=== PATIENT | female | born 1995 | race Caucasian/White ===

== ENCOUNTER 2024-11-01 10:13 | Outpatient (OUT) | payer OTHER, SELFPAY ==
[2024-11-01 10:44] LABS: Basophils Absolute Auto 0.1 10^3/uL (0.0-0.1); Basophils Percent Auto 0.8 % (0.2-2.0); Eosinophils Absolute Auto 0.4 10^3/uL (0.0-0.7); Eosinophils Percent Auto 3.2 % (0.9-7.0); Hematocrit 37.3 % (36.0-48.0); Hemoglobin 12.8 g/dL (12.0-16.0); Immature Granulocytes Abs Auto 0.05 10^3/uL (0.00-0.03); Immature Granulocytes Pct Auto 0.5 % (0.0-0.5); Lymphocytes Absolute Auto 2.3 10^3/uL (1.2-3.8); Lymphocytes Percent Auto 21.3 % (20.5-60.0); Mean Corpuscular HGB Conc 34.3 g/dL (29.9-35.2); Mean Corpuscular Hemoglobin 29.6 pg (26.7-34.0); Mean Corpuscular Volume 86.1 fL (81.0-99.0); Mean Platelet Volume 10.4 fL (9.5-13.5); Monocytes Absolute Auto 0.6 10^3/uL (0.3-0.8); Monocytes Percent Auto 5.7 % (1.7-12.0); Neutrophils Absolute Auto 7.4 10^3/uL (1.4-6.5); Neutrophils Percent Auto 68.5 % (43.0-75.0); Platelet Count 338 10^3/uL (150-450); Red Blood Count 4.33 10^6/uL (4.20-5.40); Red Cell Distribution Width 11.6 % (11.0-15.0); White Blood Count 10.8 10^3/uL (4.0-11.0)
[2024-11-01 10:58] LABS: Amphetamine Screen Urine NEGATIVE (NEGATIVE); Barbiturates Screen Urine NEGATIVE (NEGATIVE); Benzodiazepines Screen Urine NEGATIVE (NEGATIVE); Buprenorphine Screen Urine NEGATIVE (NEGATIVE); Cannabinoid Screen Urine NEGATIVE (NEGATIVE); Cocaine Screen Urine NEGATIVE (NEGATIVE); Methadone Screen Urine NEGATIVE (NEGATIVE); Methamphetamines Screen Urine NEGATIVE (NEGATIVE); Opiate Screen Urine NEGATIVE (NEGATIVE); Oxycodone Screen Urine NEGATIVE (NEGATIVE); Phencyclidine Screen Urine NEGATIVE (NEGATIVE); Tricyclic Antidepressant Urine NEGATIVE (NEGATIVE)
[2024-11-01 11:36] LABS: Estimated Average Glucose 111 mg/dL; Glycohemoglobin A1C 5.5 % (4.5-6.2)
[2024-11-01 11:57] LABS: BOX Test Reference Lab UNITY; BOX Test Sent Out UNITY
[2024-11-02 08:10] LABS: HBsAg Screen Negative (Negative)
[2024-11-02 09:12] LABS: HCV Ab Non Reactive (Non Reactive); HIV Ab/p24 Ag Screen Non Reactive (Non Reactive)
[2024-11-02 13:07] LABS: Rapid Plasma Reagin, Quant Non Reactive titer (NonRea<1:1)
== END 2024-11-01 10:14 | disposition home or self-care (01) ==
LOC: LAB 10:19
PROVIDERS: PCP Family Medicine; Visit Provider Obstetrics & Gynecology
DX: Z34.01 Encounter for supervision of normal first pregnancy, first trimester (principal); Z36.0 Encounter for antenatal screening for chromosomal anomalies; N92.6 Irregular menstruation, unspecified
CPT/HCPCS: 36415; 80307; 83036; 85025; 86592; 86762; 86803; 86850; 86900; 86901; 87086; 87340; 87389

== ENCOUNTER 2024-12-16 13:48 | Outpatient (REF) | payer OTHER, SELFPAY ==
[2024-12-18 14:10] LABS: Age Gdln ACOG Testing Note (.); IGP, rfx Aptima HPV ASCU Note (.)
== END 2024-12-16 13:49 | disposition home or self-care (01) ==
LOC: LAB 13:48
PROVIDERS: PCP Family Medicine; Visit Provider Obstetrics & Gynecology
DX: Z01.419 Encounter for gynecological examination (general) (routine) without abnormal findings (principal)
CPT/HCPCS: 88175

== ENCOUNTER 2025-01-24 09:56 | Outpatient (OUT) | payer OTHER, SELFPAY ==
--- OUTSIDE RECORDS SUMMARY | 2025-01-14 15:30 | XMS_ITS | Encounter Summary ---
Author Organization [facility] Address [address] [place] [address] Care Team Providers Care Major Appliance Assembly Supervisor Name Role Phone Fer Boggs MD Primary Care Provider + [phone] Reason for Visit * Reason Comments Routine Visit Encounter Details Date Type Department Care Team (Late st Contact Info) Description 01/14/2025 3:30 PM EDT Routine [facility] [address] [phone] Anya Maldonado PA [address] [place] [phone] Second trimester ([facility]); 22 weeks gestation of ([facility]); Diabetes mellitus screening; Encounter for follow-up ultrasound of anatomy ([facility]) Social History Tobacco Use Types Packs/Day Years Used Date Smoking Tobacco: Never Assessed Estimated Date of Delivery Comme nts Yes 05/15/2025 Based on Ultraso und Sex and Gender Information Value Date Recorded Sex Assigned at Female 10/09/2024 1:37 PM EDT Legal Sex Female 1:10 PM EST Gender Identity Female 10/09/2024 1:37 PM EDT Sexual Orientation Not on file documented as of this encounter Last Filed Vital Signs Vital Sign Reading Time Taken Comments Blood Pressure 126/84 01/14/2025 3:50 PM EDT Pulse - - Temperature - - Respiratory Rate - - Oxygen Saturation - - Inhaled Oxygen Concentration - - Weight 86 kg (189 lb 8 oz) 01/14/2025 3:50 PM ED T Height - - Body Mass Index 31.53 12/16/2024 8:53 AM EDT documented in this encounter Progress Notes * MAGDA Staley - 01/14/2025 3:30 PM EDT Reason for Appointment: Patient ID: Diana Montenegro is a 29 y.o. female who presents for Routine Visit Patient presents today for Return OB appointment. MEDICATIONS Current Outpatient Medications Medication Instructions MV-Min-Fe Fum-FA-DHA ( 1 PO) Oral ALLERGIES Allergies Allergen Reactions Keflex [Cephalexin] PROBLEMS Active Ambulatory Problems Diagnosis Date Noted No Active Ambulatory Problems Resolved Ambulatory Problems Diagnosis Date Noted No Resolved Ambulatory Problems No Additional Past Medical History HISTORY PAST MEDICAL HISTORY SOCIAL HISTORY No past medical history on file. Social History Tobacco Use Smoking status: Not on file Smokeless tobacco: Not on file Substance Use Topics Alcohol use: Not on file Drug use: Not on file FAMILY HISTORY No family history on file. SURGICAL HISTORY No past surgical history on file. REVIEW OF SYSTEMS Review of Systems: Review of Systems Constitutional: Negative. HENT: Negative. Eyes: Negative. Respiratory: Negative. Cardiovascular: Negative. Gastrointestinal: Negative. Genitourinary: Negative. Musculoskeletal: Negative. Skin: Negative. Neurological: Negative. All other systems reviewed and are negative. Hematological: Negative. Endocrine: Negative. Allergic/Immunologic: Negative. OBJECTIVE Objective: Physical Exam Constitutional: Appearance: Normal appearance. She is normal weight. HENT: Head: Normocephalic. Cardiovascular: Rate and Rhythm: Normal rate. Pulses: Normal pulses. Pulmonary: Effort: Pulmonary effort is normal. Breath sounds: Normal breath sounds. Abdominal: Palpations: Abdomen is soft. Musculoskeletal: General: Normal range of motion. Neurological: General: No focal deficit present. Mental Status: She is alert and oriented to person, place, and time. Psychiatric: Mood and Affect: Mood normal. Behavior: Behavior normal. Thought Content: Thought content normal. Judgment: Judgment normal. Vitals and nursing note reviewed. Vitals: Estimated body mass index is 31.53 kg/m?? as calculated from the following: Height as of 12/16/24: 5' 5 . Weight as of this encounter: 189 lb 8 oz. BP: 126/84 Patient's last menstrual period was 08/03/2024. ASSESSMENT & PLAN ICD-10-CM 1. Second trimester ([facility]) Z34.92 POCT urinalysis dipstick manually resulted 2. 22 weeks gestation of ([facility]) Z3A.22 3. Diabetes mellitus screening Z13.1 CBC Glucose tolerance, 1 hour CBC Glucose tolerance, 1 hour Return OB: Patient presents today for a routine obstetrics appointment. Patient is currently 22w5d . Patient states she is doing well but has complaints of being tired due to current . Patient has verbalizes frequent movement. Orders Placed This Encounter Procedures CBC Glucose tolerance, 1 hour POCT urinalysis dipstick manually resulted Follow Up: Patient is to return to office in 4 week for routine OB appointment. Documented by MAGDA Staley on behalf of: MAGDA Staley documented in this encounter Plan of Treatment Upcoming Encounters Date Type Department Care Team (Late st Contact Info) Description 02/10/2025 9:30 AM EDT Ancillary Procedure [facility] [address] [place] [phone] 02/10/2025 10:10 AM EDT Routine [facility] [address] [place] [address] Scar Porter, DO [address] [place], [place] [address] [address] Scheduled Orders Name Type Priority Associated Diagnoses Orde r Schedule CBC Lab Routine Diabetes mellitus screening Expected: 01/14/2025 (Approximate), Expires: 01/14/2026 Glucose tolerance, 1 hour Lab Routine Diabetes mellitus screening Expected: 01/14/2025 (Approximate), Expires: 01/14/2026 US OB limited 1+ fetuses Imaging Routine Encounter for follow-up ultrasound of anatomy ([facility]) Expected: 01/14/2025, Expires: 04/16/2025 documented as of this encounter Procedures Procedure Name Priority Date/Time Associated Diagnosis Comments POCT URINALYSIS DIPSTICK Routine 01/14/2025 3:56 PM EDT Second trimester ([facility]) documented in this encounter Results * (ABNORMAL) POCT urinalysis dipstick manually resulted (01/14/2025 3:56 PM EDT) Color, UA Yellow Clarity, UA Clear Glucose, UA Negative Negative - 2000(110) ++++ mg/dL Bilirubin, UA Negative Negative - 4(70) +++ mg/dL Ketones, UA Positive Negative - 160(16) ++++ mg/dL Comment:Trace Spec Grav, UA 1.025 1 - 1.03 Blood, UA Negative Negative - 50 Jaskaran/mcL pH, UA 6.5 5 - 9 Protein, UA Negative Negative - 2000(20) ++++ mg/dL Urobilinogen, UA 1.0 0.2 - 12 mg/dL Leukocytes, UA Trace Negative - 500+++ Ang/mcL Nitrite, UA Negative Negative - Positive Urine 01/14/2025 3:56 PM EDT Anya MAN POINT OF CARE TEST ENTER/EDIT OR DERABLES Final Result documented in this encounter Visit Diagnoses Diagnosis Second trimester ([facility]) state, incidental 22 weeks gestation of ([facility]) Diabetes mellitus screening Screening for diabetes mellitus Encounter for follow-up ultrasound of anatomy ([facility]) documented in this encounter Care Teams Major Appliance Assembly Supervisor Relationship Specialty Start Date End Date Fer Boggs MD [address] [place] [address] PCP - General Family Medicine 10/09/24 documented as of this encounter
--- OUTSIDE RECORDS SUMMARY | 2025-01-24 09:59 | XMS_ITS ---
Author Organization [facility] (ClinicalSummary Clone) Address Unknown Care Team Providers Care Agricultural Consultant Name Role Phone Unavailable Primary Care Physician Unavailab le Results * [UNITY] ANEUPLOIDY NIPT Performed by: [employer] Component Value Range Date Fraction 4.3% 11/08/2024 05 :56 am UT Rh(D) NIPT RhD DETECTED 11/08/2024 05:5 6 am UT Sex Chromosome Aneuploidy NOT DETECTED 05:56 am UTC Monosomy X LOW RISK <1 in 10,000 2024 05:56 am UTC Trisomy 13 LOW RISK <1 in 10,000 2024 05:56 am UTC Trisomy 18 LOW RISK <1 in 10,000 2024 05:56 am UTC Trisomy 21 LOW RISK <1 in 10,000 2024 05:56 am UTC Sex MALE 11/08/2024 05:5 6 am UTC Gestation BYERS 11/09/19 05:56 am UT For detailed report, see PDF See PDF 11/08/2024 05:56 am UTC 11/08/2024 05:5 6 am UT Social History Observation Value Start Date End Date
--- OUTSIDE RECORDS SUMMARY | 2025-01-24 09:59 | XMS_ITS | Encounter Summary ---
Author Organization [facility] Address [address] [place] [address] Care Team Providers Care Manager Oracle Name Role Phone Fer Boggs MD Primary Care Provider [phone] Encounter Details Date Type Department Care Team (Late st Contact Info) Description 01/14/[address] [facility] [address] [place] [address] [place] [phone] Anya Maldonado PA [address] [place] [address] [address] [place], [id number] Social History Tobacco Use Types Packs/Day Years Used Date Smoking Tobacco: Never Assessed Estimated Date of Delivery Comme nts Yes 05/15/2025 Based on Ultraso und Sex and Gender Information Value Date Recorded Sex Assigned at Female 10/09/2024 1:37 PM EDT Legal Sex Female 1:10 PM EST Gender Identity Female 10/09/2024 1:37 PM EDT Sexual Orientation Not on file documented as of this encounter Plan of Treatment Upcoming Encounters Date Type Department Care Team (Late st Contact Info) Description 02/10/2025 9:30 AM EDT Ancillary Procedure [facility] [address] [place], [place] [address] [phone] 02/10/2025 10:10 AM EDT [facility] [address] [place] [address] [place] [phone] Scar Porter DO [facility] Irene [place], [id number] documented as of this encounter Visit Diagnoses Not on filedocumented in this encounter Care Teams Manager Oracle Relationship Specialty Start Date End Date Fer Boggs MD [address] [address] PCP - General Family Medicine 10/09/24 documented as of this encounter
--- OUTSIDE RECORDS SUMMARY | 2025-01-24 09:59 | XMS_ITS ---
Author Organization [facility] Source Produ ction (ClinicalSummary Clone) Address Unknown Care Team Providers Care Community Engagement Specialist Name Role Phone Unavailable Primary Care Physician Unavailab le Results * [UNITY] CARRIER SCREEN Performed by: [employer] Component Value Range Date Sickle Cell Disease/Beta-Thalassemia/Hemo globinopathies carrier screen NEGATIVE 11/11/2024 08:54 pm UTC Alpha-Thalassemia carrier screen NEGATIVE 11/11/2024 08:54 pm UTC Cystic Fibrosis carrier screen NEGATIVE 11/11/2024 08:54 pm UTC Spinal Muscular Atrophy carrier screen NEGATIVE 3 SMN1 copies, SNP not present 11/11/2024 08:54 pm UT For detailed report, see PDF See PDF 11/11/2024 08:54 pm UTC 11/11/2024 08:5 4 pm UT Social History Observation Value Start Date End Date
--- OUTSIDE RECORDS SUMMARY | 2025-01-24 09:59 | XMS_ITS | Clinical Summary ---
Author Organization [facility] Address [address] [place] [address] Care Team Providers Care Morning Babysitter Name Role Phone Fer Boggs MD Primary Care Provider [phone] Allergies Active Allergy Reactions Criticality Noted Date Comments Cephalexin 10/09/2024 Medications MV-Min-Fe Fum-FA-DHA ( 1 PO) Take by mouth Active Encounters Date Type Department Care Team Description 01/14/2025 3:30 PM EDT Routine [facility] [address] [place] [address] Anya Maldonado PA Second trimester ([facility]); 22 weeks gestation of ([facility]); Diabetes mellitus screening; Encounter for follow-up ultrasound of anatomy ([facility]) 01/14/2025 Bamboo flowsheet [facility] [address] [place] [address] Anya Maldonado PA 01/06/2025 2:30 PM EDT Ancillary Procedure [facility] [address] [place] [address] Screening, , for anatomic survey ([facility]) 12/30/2024 Orders Only [facility] [address] [place] [address] Tania Bertrand LPN 12/16/2024 8:40 AM EDT Routine [facility] [address] [place] [address] Scar Porter DO Second trimester ([facility]); 18 weeks gestation of ([facility]); Well woman exam with routine gynecological exam; Exposure to STD; Need for maternal serum alpha-protein (MSAFP) screening ([facility]); Screening, , for anatomic survey ([facility]) 12/16/2024 Clinisync Result Encounter [facility] External Department Unsolicited Scar Porter, 12/16/2024 External Result Encounter [facility] External Department Unsolicited Scar Porter, 12/16/2024 Bamboo flowsheet [facility] [address] [place] [address] Scar Porter DO 12/16/2024 Travel 11/17/2024 8:50 AM EDT Routine [facility] [address] [place] [address] Scar Porter DO Second trimester ([facility]); 14 weeks gestation of ([facility]) 11/17/2024 Bamboo flowsheet [facility] [address] [place] [address] Scar Porter DO 11/17/2024 Travel 11/01/2024 Clinisync Result Encounter [facility] External Department Unsolicited Scar Porter DO from Last 3 Months Social History Tobacco Use Types Packs/Day Years Used Date Smoking Tobacco: Never Assessed Estimated Date of Delivery Comme nts Yes 05/15/2025 Based on Ultraso und Sex and Gender Information Value Date Recorded Sex Assigned at Female 10/09/2024 1:37 PM EDT Legal Sex Female 1:10 PM EST Gender Identity Female 10/09/2024 1:37 PM EDT Sexual Orientation Not on file Last Filed Vital Signs Vital Sign Reading Time Taken Comments Blood Pressure 126/84 01/14/2025 3:50 PM EDT Pulse - - Temperature - - Respiratory Rate - - Oxygen Saturation - - Inhaled Oxygen Concentration - - Weight 86 kg (189 lb 8 oz) 01/14/2025 3:50 PM ED T Height 165.1 cm (5' 5 ) 12/16/2024 8:53 AM EDT Body Mass Index 31.53 12/16/2024 8:53 AM EDT Plan of Treatment Upcoming Encounters Date Type Department Care Team (Late st Contact Info) Description 02/10/2025 9:30 AM EDT Ancillary Procedure [facility] [address] [facility] [place] [phone] 02/10/2025 10:10 AM EDT Routine [facility] [address] [facility] [address] Scar Porter, DO [address] [place] [address] Procedures Procedure Name Priority Date/Time Associated Diagnosis Comments POCT URINALYSIS DIPSTICK Routine 01/14/2025 3:56 PM EDT Second trimester ([facility]) US OB 14+ WEEKS ANATOMY SCAN Routine 01/06/2025 3:39 PM EDT Screening, , for anatomic survey ([facility]) RECURRENT VAGINITIS (HTRX) Routine 12/16/2024 9:24 AM EDT IGP,APTIMA HPV,AGE GDLN Routine 12/16/2024 8:38 AM EDT PAP SMEAR Routine 12/16/2024 12:00 AM EDT POCT URINALYSIS DIPSTICK Routine 11/17/2024 12:04 PM EDT Second trimester ([facility]) HCV ANTIBODY RFX TO QUANT PCR Routine 11/01/2024 10:35 AM EDT ALL RUBELLA IGG AB Routine 11/01/2024 10 :35 AM EDT HBSAG SCREEN Routine 11/01/2024 10:35 AM EDT RAPID PLASMA REAGIN, QUANT Routine 11/01/2024 10:35 AM EDT HIV AB/P24 AG WITH REFLEX Routine 11/01/2024 10:35 AM EDT ALL TYPE AND SCREEN Routine 11/01/2024 1 0:35 AM EDT MLR HEMOGLOBIN A1C Routine 11/01/2024 10 :35 AM EDT ALL CBC WITH AUTO DIFF Routine 11/01/2024 10:35 AM EDT BOX TEST Routine 11/01/2024 10:28 AM EDT [facility] DRUG SCREEN RAPID (URINE) Routine 11/01/2024 10:25 AM EDT from Last 3 Months Results * (ABNORMAL) POCT urinalysis dipstick manually resulted (01/14/2025 3:56 PM EDT) Only the most recent of2 resultswithin the time period is included. Color, UA Yellow Clarity, UA Clear Glucose, [...] CARE TEST ENTER/EDIT OR DERABLES Final Result * US OB 14+ weeks anatomy scan (01/06/2025 3:39 PM EDT) Anatomical Region Laterality Modality Body Ultrasound 01/08/2025 9:47 AM EDT Narrative 01/08/2025 9:47 AM EDT EXAM: US OB 14+ WEEKS ANATOMY SCAN HISTORY: anatomy. COMPARISON: Ob ultrasound 10/09/2024. TECHNIQUE: Two-dimensional transabdominal grayscale ultrasound imaging of the pelvis was performed. FINDINGS: Gestation: Single Presentation: Variable Cardiac Activity: 145 beats per minute Placental Location: Posterior with no sonographic abnormalities identified. Distance from Placental Tip to Cervix: 2.7 cm Cervical Length: 4.9 cm Amniotic Fluid: Appears adequate MEASUREMENTS: BPD: 5.0 cm EGA: 21 weeks 2 days HC: 18.9 cm EGA: 21 weeks 2 days AC: 16.7 cm EGA: 21 weeks 5 days FL: 3.5 cm EGA: 21 weeks 0 days HC/AC Ratio: 1.14 The gestational age by today's ultrasound is 21 weeks 2 days (+/- 10 days gestation). Estimated Weight: 418 grams, +/- 63 grams ( 0 lb 15 oz). Weight Percentile for gestational age: 33 % ANATOMY C-Spine: Unremarkable T-Spine: Unremarkable L-Spine: Unremarkable Sacrum: Unremarkable Four Chamber Heart: Unremarkable LVOT: Limited RVOT: Limited Stomach: Unremarkable Kidneys: Unremarkable Bladder: Unremarkable Diaphragm: Unremarkable Cord insertion: Unremarkable Cord vessels: Three Lateral Ventricles: Unremarkable Cerebellum: Unremarkable Cisterna Magna: Unremarkable Posterior Fossa: Unremarkable Right Femur: Unremarkable Left Femur: Unremarkable Right Tib/Fib: Unremarkable Left Tib/Fib: Unremarkable Right Rad/Ulnar: Unremarkable Left Rad/Ulnar: Unremarkable Right Humerus: Unremarkable Left Humerus: Unremarkable Nose/Lips: Unremarkable Profile: Unremarkable Orbits: Unremarkable IMPRESSION: 1. Single, live intrauterine gestation 21 weeks, 4 days by LMP. Today's ultrasound measurements correlate with a gestational age of 21 weeks 2 days. Estimated weight is 418 grams, +/- 63 grams ( 0 lb 15 oz) which correlates to 33 %. IVET by today's ultrasound is 05/17/2025. 2. Unremarkable anatomy with limited visualization of the outflow tracts. A short-term follow-up ultrasound is recommended. Interpreted by: Electronically signed by SUMAN PATHAK II, MD, PHD at 08-Jan-2025 09:46:24 AM [facility] Procedure Note Suman Pathak MD - 01/08/2025 EXAM: US OB 14+ WEEKS ANATOMY SCAN HISTORY: anatomy. COMPARISON: Ob ultrasound 10/09/2024. TECHNIQUE: Two-dimensional transabdominal grayscale ultrasound imaging ofthe pelvis was performed. FINDINGS: Gestation: Single Presentation: Variable Cardiac Activity: 145 beats per minute Placental Location: Posterior with no sonographic abnormalitiesidentified. Distance from Placental Tip to Cervix: 2.7 cm Cervical Length: 4.9 cm Amniotic Fluid: Appears adequate MEASUREMENTS: BPD: 5.0 cm EGA: 21 weeks 2 days HC: 18.9 cm EGA: 21 weeks 2 days AC: 16.7 cm EGA: 21 weeks 5 days FL: 3.5 cm EGA: 21 weeks 0 days HC/AC Ratio: 1.14 The gestational age by today's ultrasound is 21 weeks 2 days (+/- 10 daysgestation). Estimated Weight: 418 grams, +/- 63 grams ( 0 lb 15 oz). Weight Percentile for gestational age: 33 % ANATOMY C-Spine: Unremarkable T-Spine: Unremarkable L-Spine: Unremarkable Sacrum: Unremarkable Four Chamber Heart: Unremarkable LVOT: Limited RVOT: Limited Stomach: Unremarkable Kidneys: Unremarkable Bladder: Unremarkable Diaphragm: Unremarkable Cord insertion: Unremarkable Cord vessels: Three Lateral Ventricles: Unremarkable Cerebellum: Unremarkable Cisterna Magna: Unremarkable Posterior Fossa: Unremarkable Right Femur: Unremarkable Left Femur: Unremarkable Right Tib/Fib: Unremarkable Left Tib/Fib: Unremarkable Right Rad/Ulnar: Unremarkable Left Rad/Ulnar: Unremarkable Right Humerus: Unremarkable Left Humerus: Unremarkable Nose/Lips: Unremarkable Profile: Unremarkable Orbits: Unremarkable IMPRESSION: 1. Single, live intrauterine gestation 21 weeks, 4 days by LMP. Today'sultrasound measurements correlate with a gestational age of 21 weeks 2days. Estimated weight is 418 grams, +/- 63 grams ( 0 lb 15 oz)which correlates to 33 %. IVET by today's ultrasound is 05/17/2025. 2. Unremarkable anatomy with limited visualization of the outflowtracts. A short-term follow-up ultrasound is recommended. Interpreted by: Electronically signed by SUMAN PATHAK II, MD, PHD [id number] 09:46:24 AM [facility] us Scar Porter DO IMG OB US PROCEDURES Final Resul t * RECURRENT VAGINITIS (HTRX) (12/16/2024 9:24 AM EDT) [facility] ATOPOBIUM VAGINAE 0.000 19.961 - 24.689 ppm 12/17/2024 7:05 AM EDT [facility] ATOPOBIUM VAGINAE Not Detected 19.961 - 24.689 ppm 12/17/2024 7:05 AM EDT [facility] BVAB 2,3 (BACTERIAL VAGINOSIS ASSOCIATED BACTERIA 2, 3); MOBILUNCUS SPP 0.000 19.961 - 24.689 ppm 12/17/2024 7:05 AM EDT [facility] BVAB 2,3 (BACTERIAL VAGINOSIS ASSOCIATED BACTERIA 2, 3); MOBILUNCUS SPP Not Detected 19.961 - 24.689 ppm 12/17/2024 7:05 AM EDT [facility] DIRK ALBICANS, PARAPSILOSIS, TROPICALIS 0.000 19.961 - 30.770 ppm 12/17/2024 7:05 AM EDT [facility] DIRK ALBICANS, PARAPSILOSIS, TROPICALIS Not Detected 19.961 - 30.770 ppm 12/17/2024 7:05 AM EDT [facility] DIRK GLABRATA 0.000 23.000 - 32.138 ppm 12/17/2024 7:05 AM EDT [facility] DIRK GLABRATA Not Detected 23.000 - 32.138 ppm 12/17/2024 7:05 AM EDT [facility] DIRK KRUSEI 0.000 23.000 - 32.271 ppm 12/17/2024 7:05 AM EDT [facility] DIRK KRUSEI Not Detected 23.000 - 32.271 ppm 12/17/2024 7:05 AM EDT [facility] CHLAMYDIA TRACHOMATIS 0.000 23.000 - 31.467 ppm 12/17/2024 7:05 AM EDT [facility] CHLAMYDIA TRACHOMATIS Not Detected 23.000 - 31.467 ppm 12/17/2024 7:05 AM EDT [facility] GARDNERELLA VAGINALIS 0.000 19.961 - 24.689 ppm 12/17/2024 7:05 AM EDT [facility] [place] GARDNERELLA VAGINALIS Not Detected 19.961 - 24.689 ppm 12/17/2024 7:05 AM EDT [facility] MEGASPHAERA (TYPES 1, 2) 0.000 19.961 - 24.689 ppm 12/17/2024 7:05 AM EDT [facility] MEGASPHAERA (TYPES 1, 2) Not Detected 19.961 - 24.689 ppm 12/17/2024 7:05 AM EDT [facility] NEISSERIA GONORRHOEAE 0.000 23.000 - 32.117 ppm 12/17/2024 7:05 AM EDT [facility] NEISSERIA GONORRHOEAE Not Detected 23.000 - 32.117 ppm 12/17/2024 7:05 AM EDT [facility] TRICHOMONAS VAGINALIS 0.000 23.000 - 32.119 ppm 12/17/2024 7:05 AM EDT [facility] TRICHOMONAS VAGINALIS Not Detected 23.000 - 32.119 ppm 12/17/2024 7:05 AM EDT [facility] MYCOPLASMA GENITALIUM 0.000 19.961 - 24.689 ppm 12/17/2024 7:05 AM EDT [facility] MYCOPLASMA GENITALIUM Not Detected 19.961 - 24.689 ppm 12/17/2024 7:05 AM EDT [facility] Tissue 12/16/2024 9:24 AM EDT 12/17/2024 2:51 AM EDT us Scar Porter DO LAB BLOOD ORDERABLES Final Resul t [facility] [address] [place] [address] * IGP,APTIMA HPV,AGE GDLN (12/16/2024 8:38 AM EDT) AGE GDLN ACOG TESTING Note . [facility] Comment: TESTS RESULT FLAG UNITS REF RANGE LAB Clinician Provided Cytology Information Source.............Endocervix Other.............. No. of containers..01 ThinPrep Vial Age Algo ACOG Myesha... FLAG LEGEND: L-Low Normal,H-High Normal,LL-Alert Low,HH-Alert High <-Panic Low,>-Panic High,A-Abnormal,AA-Critical Abnormal Performed at: 01 =[facility] [address] [place] [address] Karlee Rolon MD, IGP, RFX APTIMA HPV ASCU Note . [facility] Comment: TESTS RESULT FLAG UNITS REF RANGE LAB DIAGNOSIS: 02 NEGATIVE FOR INTRAEPITHELIAL LESION OR MALIGNANCY. Specimen adequacy: 02 Satisfactory for evaluation. No endocervical component is identified. An endocervical component is not commonly seen in the patient. Performed by: 02 Jonna Morrison, Roller Repairer (ASCP) . 02 Note: Note 02 The Pap smear is a screening test designed to aid in the detection of premalignant and malignant conditions of the uterine cervix. It is not a diagnostic procedure and should not be used as the sole means of detecting cervical cancer. Both false-positive and false-negative reports do occur. Test Methodology: Note 02 This liquid based ThinPrep(R) pap test was screened with the use of an image guided system. . 02 The HPV DNA reflex criteria were not met with this specimen result therefore, no HPV testing was performed. FLAG LEGEND: L-Low Normal,H-High Normal,LL-Alert Low,HH-Alert High <-Panic Low,>-Panic High,A-Abnormal,AA-Critical Abnormal Performed at: [address] [address] Karlee Rolon MD, Performed at: =G - [facility] [address] [id number] Live In Housekeeper Nanny: Karlee Rolon MD, Phone: [phone] Performed at: [facility] [address] [id number] Live In Housekeeper Nanny: Karlee Rolon MD, Phone: [phone] 12/16/2024 8:38 AM EDT 12/16/2024 1:53 PM EDT Narrative [facility] - 12/18/2024 2:10 PM EDT SPATULA-ALONE ENDOCERVIX us Scar Porter DO LAB BLOOD ORDERABLES Final Resul t [facility] * Pap Smear (12/16/2024 12:00 AM EDT) Swab Cervical swab / Unknown Scar German DO LAB CYTOLOGY ORDERABLES Final Re sult Performing Organization Address City/[facility]/ZIP Co de Phone Number EXTERNAL LAB * HBSAG SCREEN (11/01/2024 10:35 AM EDT) HBSAG SCREEN Negative Negative [facility] Comment: Performed at: [address] [id number] Live In Housekeeper Nanny: Morales Cameron PhD, Phone: [phone] 11/01/2024 10:3 5 AM EDT 11/01/2024 10:39 AM EDT Narrative [facility] - 11/02/2024 1:07 PM EDT Scar German DO LAB BLOOD ORDERABLES Final Resul t Performing Organization Address City/[facility] Co de Phone Number [facility] * RAPID PLASMA REAGIN, QUANT (11/01/2024 10:35 AM EDT) Pathologist [facility] RAPID PLASMA REAGIN, QUANT Non Reactive NonRea<1: 1 titer [facility] Comment: Please Note: This test does not meet current guidelines for screening and diagnosis of syphilis. This test is intended for following treatment response in patients being treated for syphilis infection. To screen for syphilis infection, a reflex cascade that includes both RPR and a treponema-specific assay should be utilized, such as Treponema pallidum (Syphilis) Screening [place] (559965) or Rapid Plasma Reagin (RPR) Test With Reflex to Quantitative RPR and Confirmatory Treponema pallidum Antibodies (698812). Performed at: [address] [id number] Live In Housekeeper Nanny: Morales Cameron PhD, Phone: [phone] 11/01/2024 10:3 5 AM EDT 11/01/2024 10:39 AM EDT Narrative [facility] - 11/02/2024 1:07 PM EDT us Scar German DO LAB BLOOD ORDERABLES Final Resul t Performing Organization Address [facility] Co de Phone Number [facility] * HIV AB/P24 AG WITH REFLEX (11/01/2024 10:35 AM EDT) [facility] HIV AB/P24 AG SCREEN Non Reactive Non Reactive [facility] Comment: HIV-1/HIV-2 antibodies and HIV-1 p24 antigen were NOT detected. There is no laboratory evidence of HIV infection. HIV Negative Performed at: [address] [id number] Live In Housekeeper Nanny: Morales Cameron PhD, Phone: [phone] 11/01/2024 10:3 5 AM EDT 11/01/2024 10:39 AM EDT [facility] 11/02/2024 9:12 AM EDT us Scar German DO LAB BLOOD ORDERABLES Final Resul t Performing Organization Address [facility] de Phone Number [facility] * HCV ANTIBODY RFX TO QUANT PCR (11/01/2024 10:35 AM EDT) [facility] HCV AB Non Reactive Non Reactive [facility] INTERPRETATION: Comment . [facility] Comment: Not infected with HCV unless early or acute infection is suspected (which may be delayed in an immunocompromised individual), or other evidence exists to indicate HCV infection. Performed at: [address] [id number] Live In Housekeeper Nanny: Morales Cameron PhD, Phone: [phone] 11/01/2024 10:3 5 AM EDT 11/01/2024 10:39 AM EDT Narrative [facility] - 11/02/2024 2:07 PM EDT us Scar German DO LAB BLOOD ORDERABLES Final Resul t Performing Organization Address [facility] Co de Phone Number [facility] * MLR HEMOGLOBIN A1C (11/01/2024 10:35 AM EDT) [facility] GLYCOHEMOGLOBIN A1C 5.5 4.5 - 6.2 % [facility] Comment: ADA RECOMMENDED LIMIT 4.0 - 6.0 ADA THERAPEUTIC TARGET < 7.0 ACTION SUGGESTED > 7.0 ESTIMATED AVERAGE GLUCOSE 111 mg/dL TB 11/01/2024 10:3 5 AM EDT 11/01/2024 10:39 AM EDT Narrative [facility] - 11/01/2024 11:36 AM EDT us Scar German DO [facility] Final Result Performing Organization Address City/[facility]/ZIP Co de Phone Number [facility] * ALL TYPE AND SCREEN (11/01/2024 10:35 AM EDT) [facility] BLOOD TYPE O Positive [facility] ANTIBODY SCREEN NEGATIVE TB 11/01/2024 10:3 5 AM EDT 11/01/2024 10:39 AM EDT Narrative [facility] - 11/01/2024 12:08 PM EDT [facility] , Scar German DO CLINISYNC Final Result Performing Organization Address [facility] de Phone Number [facility] * ALL RUBELLA IGG AB (11/01/2024 10:35 AM EDT) [facility] RUBELLA ANTIBODIES, IGG 10.90 Immune >0.99 index [facility] Comment: Non-immune <0.90 Equivocal 0.90 - 0.99 Immune >0.99 Performed at: [address] [id number] Live In Housekeeper Nanny: Morales Cameron PhD, Phone: [phone] 11/01/2024 10:3 5 AM EDT 11/01/2024 10:39 AM EDT Narrative [facility] - 11/02/2024 2:07 PM EDT us Scar German DO CLIN[facility] Final Result Performing Organization Address City/[facility]/ZIP Co de Phone Number [facility] * (ABNORMAL) ALL CBC WITH AUTO DIFF (11/01/2024 10:35 AM EDT) [facility] WBC 10.8 4.0 - 11.0 10 3/uL [facility] TBH RBC 4.33 4.20 - 5.40 10 6/uL [facility] TBH HGB 12.8 12.0 - 16.0 g/dL [facility] TBH HCT 37.3 36.0 - 48.0 % [facility]H MCV 86.1 81.0 - 99.0 fL [facility] TBH MCH 29.6 26.7 - 34.0 pg TBH TBH MCHC 34.3 29.9 - 35.2 g/dL [facility] TBH RDW 11.6 11.0 - 15.0 % [facility] TBH PLT 338 150 - 450 10 3/uL [facility] TBH MPV 10.4 9.5 - 13.5 fL [facility] NEUTROPHILS PERCENT AUTO 68.5 43.0 - 75.0 % [facility] LYMPHOCYTES PERCENT AUTO 21.3 20.5 - 60.0 % [facility] MONOCYTES PERCENT AUTO 5.7 1.7 - 12.0 % [facility]H EO % 3.2 0.9 - 7.0 % [facility] BASOPHILS PERCENT AUTO 0.8 0.2 - 2.0 % [facility] IMMATURE GRANULOCYTES PCT AUTO 0.5 0.0 - 0.5 % [facility] NEUTROPHILS ABSOLUTE AUTO 7.4(H) 1.4 - 6.5 10 3/uL [facility] LYMPHOCYTES ABSOLUTE AUTO 2.3 1.2 - 3.8 10 3/uL [facility] MONOCYTES ABSOLUTE AUTO 0.6 0.3 - 0.8 10 3/uL [facility] TBH EO # 0.4 0.0 - 0.7 10 3/uL [facility] BASOPHILS ABSOLUTE AUTO 0.1 0.0 - 0.1 10 3/uL [facility] IMMATURE GRANULOCYTES ABS AUTO 0.05(H) 0.00 - 0.03 10 3/uL [facility] 11/01/2024 10:3 5 AM EDT 11/01/2024 10:39 AM EDT Narrative [facility] - 11/01/2024 10:48 AM EDT Scar German DO CLINISYNC Final Result [facility] * BOX TEST (11/01/2024 10:28 AM EDT) BOX TEST SENT OUT [facility] BOX1 [facility] BOX[facility] 11/01/24 [facility] 11/01/2024 10:2 8 AM EDT 11/01/2024 11:00 AM EDT Narrative [facility] - 11/01/2024 11:57 AM EDT [place] us Scar German DO LAB BLOOD ORDERABLES Final Resul t [facility] * [facility] DRUG SCREEN RAPID (URINE) (11/01/2024 10:25 AM EDT) CANNABINOID SCREEN URINE NEGATIVE NEGATIVE [facility] PHENCYCLIDINE SCREEN URINE NEGATIVE NEGATIVE [facility] COCAINE SCREEN URINE NEGATIVE NEGATIVE [facility] METHAMPHETAMINES SCREEN URINE NEGATIVE NEGATIVE TBH OPIATE SCREEN URINE NEGATIVE NEGATIVE TBH AMPHETAMINE SCREEN URINE NEGATIVE NEGATIVE TBH BENZODIAZEPINES SCREEN URINE NEGATIVE NEGATIVE TBH TRICYCLIC ANTIDEPRESSANT URINE NEGATIVE NEGATIVE TBH METHADONE SCREEN URINE NEGATIVE NEGATIVE TBH BARBITURATES SCREEN URINE NEGATIVE NEGATIVE TBH OXYCODONE SCREEN URINE NEGATIVE NEGATIVE TBH BUPRENORPHINE SCREEN URINE NEGATIVE NEGATIVE [facility] Comment: DRUG CLASS TEST SYSTEM CUT-OFF CONCENTRATIONS ARE FOLLOWS: AMP (Amphetamine): 500 ng/mL BAR (Barbiturates): 200 ng/mL BZO (Benzodiazepines): 150 ng/mL BUP (Buprenorphine): 10 ng/mL BETHANY (Cocaine): 150 ng/mL mAMP (Methamphetamine): 500 ng/mL MTD (Methadone): 200 ng/mL OPI (Opiates): 100 ng/mL OXY (Oxycodone): 100 ng/mL PCP (Phencyclidine): 25 ng/mL THC (Cannabinoids): 50 ng/mL TCA (Trycyclic Antidepressants): 300 ng/mL 11/01/2024 10:2 5 AM EDT 11/01/2024 10:39 AM EDT Narrative [facility] - 11/01/2024 10:58 AM EDT us Scar German DO CL[facility] Final Result [facility] from Last 3 Months Insurance BS Care Teams Morning Babysitter Relationship Specialty Start Date End Date Fer Boggs MD [address] [place] [address] PCP - General Family Medicine 10/09/24
--- OUTSIDE RECORDS SUMMARY | 2025-01-24 09:59 | XMS_ITS | Encounter Summary ---
Author Organization [facility] Address [address] [place] [address] Care Team Providers Care Reading Aide Name Role Phone Fer Boggs MD Primary Care Provider [phone] Encounter Details Date Type Department Care Team (Late st Contact Info) Description 12/30/[address] [facility] [address] [place] [address] Tania Bertrand LPN [address] [employer] [place] [id number] Social History Tobacco Use Types Packs/Day Years [...] AM EDT Ancillary Procedure [facility] [address] [place] [address] 02/10/2025 10:10 AM EDT [facility]ine [facility] [address] [place] [address] Scar Porter DO [address] [place], [place] [address] [place] [address] documented as of this encounter Procedures Procedure Name Priority Date/Time Associated Diagnosis Comments PAP SMEAR Routine 12/16/2024 12:00 AM EDT documented in this encounter Results * Pap Smear (12/16/2024 12:00 AM EDT) Swab Cervical swab / Unknown us Scar German DO LAB CYTOLOGY ORDERABLES Final Re sult EXTERNAL LAB documented in this encounter Visit Diagnoses Not on filedocumented in this encounter Care Teams Reading Aide Relationship Specialty [place] [address] [place], [place] [address] [address] PCP - General Family Medicine 10/09/24 documented as of this encounter
[2025-01-24 11:17] LABS: Glucose 1 Hour 158 mg/dL (<130)
[2025-01-24 11:24] LABS: Hematocrit 33.9 % (36.0-48.0); Hemoglobin 11.8 g/dL (12.0-16.0); Immature Granulocytes Abs Auto 0.06 10^3/uL (0.00-0.03); Immature Granulocytes Pct Auto 0.4 % (0.0-0.5); Lymphocytes Absolute Auto 2.1 10^3/uL (1.2-3.8); Mean Corpuscular HGB Conc 34.8 g/dL (29.9-35.2); Mean Corpuscular Hemoglobin 31.0 pg (26.7-34.0); Mean Corpuscular Volume 89.0 fL (81.0-99.0); Platelet Count 280 10^3/uL (150-450); Red Blood Count 3.81 10^6/uL (4.20-5.40); White Blood Count 13.9 10^3/uL (4.0-11.0)
== END 2025-01-24 09:57 | disposition home or self-care (01) ==
PROVIDERS: PCP Family Medicine; Visit Provider Physician Assistant
DX: Z13.1 Encounter for screening for diabetes mellitus (principal)
CPT/HCPCS: 36415; 82950; 85025

== ENCOUNTER 2025-01-27 10:11 | Outpatient (OUT) | payer OTHER, SELFPAY ==
--- OUTSIDE RECORDS SUMMARY | 2025-01-27 10:13 | XMS_ITS | Encounter Summary ---
Author Organization [facility] Address [address] [place] [address] Care Team Providers Care Six Horse Hitch Driver Name Role Phone Fer Boggs MD Primary Care Provider [phone] Encounter Details Date Type Department Care Team (Late st Contact Info) Description 01/24/2025 Clinisync Result Encounter NOMS External Department Unsolicited Anya Maldonado PA [address] [facility] [address] [place], [facility]11 Social History Tobacco Use Types Packs/Day Years [...] EDT Ancillary Procedure [facility] BCP OB [address] [place] [address] 02/10/2025 10:10 AM EDT Routine [facility] BCP OB [address] [place] [address] Scar Porter DO [address], [facility]11 documented as of this encounter Procedures Procedure Name Priority Date/Time Associated Diagnosis Comments GLUCOSE 1 HOUR Routine 01/24/2025 10:52 AM EDT ALL CBC WITH AUTO DIFF Routine 01/24/2025 10:52 AM EDT documented in this encounter Results * (ABNORMAL) ALL CBC WITH AUTO DIFF (01/24/2025 10:52 AM EDT) TBH WBC 13.9(H) 4.0 - 11.0 10 3/uL TBH TBH RBC 3.81(L) 4.20 - 5.40 10 6/uL TBH TBH HGB 11.8(L) 12.0 - 16.0 g/dL TBH TBH HCT 33.9(L) 36.0 - 48.0 % TBH TBH MCV 89.0 81.0 - 99.0 fL TBH TBH MCH 31.0 26.7 - 34.0 pg TBH TBH MCHC 34.8 29.9 - 35.2 g/dL TBH TBH RDW 12.4 11.0 - 15.0 % TBH TBH PLT 280 150 - 450 10 3/uL TBH TBH MPV 11.1 9.5 - 13.5 fL TBH NEUTROPHILS PERCENT AUTO 76.6(H) 43.0 - 75.0 % TBH LYMPHOCYTES PERCENT AUTO 15.1(L) 20.5 - 60.0 % TBH MONOCYTES PERCENT AUTO 5.0 1.7 - 12.0 % TBH TBH EO % 2.4 0.9 - 7.0 % TBH BASOPHILS PERCENT AUTO 0.5 0.2 - 2.0 % TBH IMMATURE GRANULOCYTES PCT AUTO 0.4 0.0 - 0.5 % TBH NEUTROPHILS ABSOLUTE AUTO 10.6(H) 1.4 - 6.5 10 3/uL TBH LYMPHOCYTES ABSOLUTE AUTO 2.1 1.2 - 3.8 10 3/uL TBH MONOCYTES ABSOLUTE AUTO 0.7 0.3 - 0.8 10 3/uL TBH TBH EO # 0.3 0.0 - 0.7 10 3/uL TBH BASOPHILS ABSOLUTE AUTO 0.1 0.0 - 0.1 10 3/uL TBH IMMATURE GRANULOCYTES ABS AUTO 0.06(H) 0.00 - 0.03 10 3/uL TBH 01/24/2025 10:5 2 AM EDT 01/24/2025 10:52 AM EDT Narrative CLINISYNC - 01/24/2025 11:24 AM EDT us Anya MAN CLINISYNC Final Result CLINISYNC TB * (ABNORMAL) GLUCOSE 1 HOUR (01/24/2025 10:52 AM EDT) Pathologist [facility] GLUCOSE 1 HOUR 158(H) <130 mg/dL TBH 01/24/2025 10:5 2 AM EDT 01/24/2025 10:52 AM EDT Narrative CLINISYNC - 01/24/2025 11:20 AM EDT us Anya MAN LAB BLOOD ORDERABLES Final Resul t CLINISYNC TB documented in this encounter Visit Diagnoses Not on filedocumented in this encounter Care Teams Six Horse Hitch Driver Relationship Specialty [place] [address] [place], [place] [address] [address] PCP - General Family Medicine 10/09/24 documented as of this encounter
--- OUTSIDE RECORDS SUMMARY | 2025-01-27 10:13 | XMS_ITS | Encounter Summary ---
Author Organization [facility] Address [address] [place] [address] Care Team Providers Care Roving Marker Name Role Phone Fer Boggs MD Primary Care Provider + [phone] Encounter Details Date Type Department Care Team (Late Contact Info) Description 01/26/2025 Telephone [facility] BCP OB [address] [place] [address] Tania Bertrand LPN [address] [place] [address] Social History Tobacco Use Types Packs/Day Years Used Date Smoking Tobacco: Never Assessed Estimated Date of Delivery Comme nts Yes 05/15/2025 Based on Ultraso und Sex and Gender Information Value Date Recorded Sex Assigned at Female 10/09/2024 1:37 PM EDT Legal Sex Female 1:10 PM EST Gender Identity Female 10/09/2024 1:37 PM EDT Sexual Orientation Not on file documented as of this encounter Miscellaneous Notes * Telephone Encounter - Tania Bertrand LPN - 01/26/2025 2:34 PM EDT Called pt to let her know that she unfortunately did not pass her 1 hour glucose test and that I would be sending over an order for the 3 hour glucose test. Pt did not answer but detailed voicemail left. documented in this encounter Plan of Treatment Upcoming Encounters Date Type Department Care Team (Late st Contact Info) Description 02/10/2025 9:30 AM EDT Ancillary Procedure [facility] BCP OB [address] [facility] [place] [id number] 02/10/2025 10:10 AM EDT Routine [facility] BCP OB [address] [facility] [place] [address] Scar Porter, DO [address] [facility] [address] [place], [place] [id number] Scheduled Orders Name Type Priority Associated Diagnoses Orde r Schedule Glucose tolerance, 3 hours Lab Routine Elevated glucose tolerance test Expected: 01/26/2025 (Approximate), Expires: 01/26/2026 documented as of this encounter Visit Diagnoses Diagnosis Elevated glucose tolerance test Impaired glucose tolerance test documented in this encounter Care Teams Roving Marker Relationship Specialty Start Date End Date Fer Boggs MD [address] [place] [address] PCP - General Family Medicine 10/09/24 documented as of this encounter
--- OUTSIDE RECORDS SUMMARY | 2025-01-27 10:14 | XMS_ITS | Clinical Summary ---
Author Organization [facility] Address [address] [place] [address] Care Team Providers Care Math Tutor Name Role Phone Fer Boggs MD Primary Care Provider [phone] Allergies Active Allergy Reactions Criticality Noted Date Comments Cephalexin 10/09/2024 Medications MV-Min-Fe Fum-FA-DHA ( 1 PO) Take by mouth Active Encounters Date Type Department Care Team Description 01/26/2025 Results Follow-Up [facility] OB [address] [place] [address] Tania Bertrand LPN 01/26/2025 Telephone NOM[facility] [address] [place] [address] Tania Bertrand LPN 01/24/2025 Clinisync Result Encounter NOMS External Department Unsolicited Anya Maldonado PA 01/14/2025 3:30 PM EDT Routine [facility] OB [address] [place] [address] Anya Maldonado PA Second trimester ([facility]); 22 weeks gestation of ([facility]); Diabetes mellitus screening; Encounter for follow-up ultrasound of anatomy ([facility]) 01/14/2025 Bamboo flowsheet [facility] OB [address] [place] [address] Anya Maldonado PA 01/06/2025 2:30 PM EDT Ancillary Procedure [facility] OB [address] [place] [address] Screening, , for anatomic survey ([facility]) 12/30/2024 Orders Only NOMS [address] [place] [address] Tania BertrandLARISSA 12/16/2024 8:40 AM EDT Routine NOMS [address] [place] [address] Scar Porter, Second trimester ([facility]); 18 weeks gestation of ([facility]); Well woman exam with routine gynecological exam; Exposure to STD; Need for maternal serum alpha-protein (MSAFP) screening ([facility]); Screening, , for anatomic survey ([facility]) 12/16/2024 Clinisync Result Encounter NOMS External Department Unsolicited Scar Porter, 12/16/2024 External Result Encounter NOMS External Department Unsolicited Scar Porter, 12/16/2024 Bamboo flowsheet NOM[facility] [address] [place] [address] Scar Porter, 12/16/2024 Travel 11/17/2024 8:50 AM EDT Routine NOM[facility] [address] [place] [address] Scar Porter, Second trimester ([facility]); 14 weeks gestation of ([facility]) 11/17/2024 Bamboo flowsheet NOM[facility] [address] [place] [address] Scar Porter, 11/17/2024 Travel 11/01/2024 Clinisync Result Encounter NOMS [...] EDT Ancillary Procedure [facility] BCP OB [address] [facility] [place] [phone] 02/10/2025 10:10 AM EDT Routine [facility] BCP OB [address] [place] [address] GermanScar rae, DO [address] [place], [place] [address] [address] Procedures Procedure Name Priority Date/Time Associated Diagnosis Comments ALL CBC WITH AUTO DIFF Routine 01/24/2025 10:52 AM EDT GLUCOSE 1 HOUR Routine 01/24/2025 10:52 AM EDT POCT URINALYSIS DIPSTICK Routine 01/14/2025 3:56 PM EDT Second trimester ([facility]) US OB 14+ WEEKS ANATOMY SCAN Routine 01/06/2025 3:39 PM EDT Screening, , for anatomic survey ([facility]) RECURRENT VAGINITIS (HTRX) Routine 12/16/2024 9:24 AM EDT IGP,APTIMA HPV,AGE GDLN Routine 12/16/2024 8:38 AM EDT PAP SMEAR Routine 12/16/2024 12:00 AM EDT POCT URINALYSIS DIPSTICK Routine 11/17/2024 12:04 PM EDT Second trimester ([facility]) HCV ANTIBODY RFX TO QUANT PCR Routine [...] from Last 3 Months Results * (ABNORMAL) GLUCOSE 1 HOUR (01/24/2025 10:52 AM EDT) GLUCOSE 1 HOUR 158(H) <130 mg/dL TBH 01/24/2025 10:5 2 AM EDT 01/24/2025 10:52 AM EDT Narrative CLINISYNC - 01/24/2025 11:20 AM EDT us Anya MAN LAB BLOOD ORDERABLES Final Resul t CLINISYNC TB * (ABNORMAL) ALL CBC WITH AUTO DIFF (01/24/2025 10:52 AM EDT) Only the most recent of2 resultswithin the time period is included. TBH WBC 13.9(H) 4.0 - 11.0 10 [...] 01/24/2025 11:24 AM EDT us Anya MAN CLINISYMIRELLA Final Result BEAU TBH * (ABNORMAL) POCT urinalysis dipstick manually resulted [...] - Positive Urine 01/14/2025 3:56 PM EDT us Anya MAN POINT OF CARE TEST ENTER/EDIT [...] II, MD, PHD at 08-Jan-2025 09:46:24 AM [facility] Procedure Note Suman Pathak MD - [...] signed by SUMAN PATHAK II, MD, PHD 09:46:24 AM [facility] us Scar German DO [facility] OB US PROCEDURES Final Resul t * RECURRENT VAGINITIS (HTRX) (12/16/2024 9:24 AM EDT) ATOPOBIUM VAGINAE 0.000 19.961 - 24.689 ppm 12/17/2024 7:05 AM EDT [facility] ATOPOBIUM VAGINAE Not Detected 19.961 - 24.689 ppm 12/17/2024 7:05 AM EDT [facility] BVAB 2,3 (BACTERIAL VAGINOSIS ASSOCIATED BACTERIA 2, 3); MOBILUNCUS SPP 0.000 19.961 - 24.689 ppm 12/17/2024 7:05 AM EDT [facility] BVAB 2,3 (BACTERIAL VAGINOSIS ASSOCIATED BACTERIA 2, 3); MOBILUNCUS SPP Not Detected 19.961 - 24.689 ppm 12/17/2024 7:05 AM EDT [facility] DIRK ALBICANS, PARAPSILOSIS, TROPICALIS 0.000 19.961 - 30.770 ppm 12/17/2024 7:05 AM EDT [facility] DIRK ALBICANS, PARAPSILOSIS, TROPICALIS Not Detected 19.961 - 30.770 ppm 12/17/2024 7:05 AM EDT [facility] DIRK GLABRATA 0.000 23.000 - 32.138 ppm 12/17/2024 7:05 AM EDT [facility] DIRK GLABRATA Not Detected 23.000 - 32.138 ppm 12/17/2024 7:05 AM EDT [facility] DIRK KRUSEI 0.000 23.000 - 32.271 ppm 12/17/2024 7:05 AM EDT [facility] DIRK KRUSEI Not Detected 23.000 - 32.271 ppm 12/17/2024 7:05 AM EDT [facility] CHLAMYDIA TRACHOMATIS 0.000 23.000 - 31.467 ppm 12/17/2024 7:05 AM EDT [facility] CHLAMYDIA TRACHOMATIS Not Detected 23.000 - 31.467 ppm 12/17/2024 7:05 AM EDT [facility] GARDNERELLA VAGINALIS 0.000 19.961 - 24.689 ppm 12/17/2024 7:05 AM EDT [facility] GARDNERELLA VAGINALIS Not Detected 19.961 - 24.689 ppm 12/17/2024 7:05 AM EDT [facility] MEGASPHAERA (TYPES 1, 2) 0.000 19.961 - 24.689 ppm 12/17/2024 7:05 AM EDT [facility] MEGASPHAERA (TYPES 1, 2) Not Detected 19.961 - 24.689 ppm 12/17/2024 7:05 AM EDT [facility] NEISSERIA GONORRHOEAE 0.000 23.000 - 32.117 ppm 12/17/2024 7:05 AM EDT [facility] NEISSERIA GONORRHOEAE Not Detected 23.000 - 32.117 ppm 12/17/2024 7:05 AM EDT [facility] TRICHOMONAS VAGINALIS 0.000 23.000 - 32.119 ppm 12/17/2024 7:05 AM EDT [facility] TRICHOMONAS VAGINALIS Not Detected 23.000 - 32.119 ppm 12/17/2024 7:05 AM EDT [facility] MYCOPLASMA GENITALIUM 0.000 19.961 - 24.689 ppm 12/17/2024 7:05 AM EDT [facility] MYCOPLASMA GENITALIUM Not Detected 19.961 - 24.689 ppm 12/17/2024 7:05 AM EDT [facility] Tissue 12/16/2024 9:24 AM EDT 12/17/2024 2:51 AM EDT us Scar Porter DO LAB BLOOD ORDERABLES Final Resul t [facility] [address] [place] [address] * IGP,APTIMA HPV,AGE GDLN (12/16/2024 8:38 AM EDT) AGE GDLN ACOG TESTING Note . [facility] Comment: TESTS RESULT FLAG UNITS REF RANGE LAB Clinician Provided Cytology Information Source.............[employer] Other.............. No. of containers..01 ThinPrep Vial Age Lopez HAMMOND Myesha... FLAG LEGEND: L-Low Normal,H-High Normal,LL-Alert Low,HH-Alert High <-Panic Low,>-Panic High,A-Abnormal,AA-Critical Abnormal Performed at: 01 =G [facility] [place] [address] Karlee Rolon MD, IGP, RFX APTIMA HPV ASCU Note . [facility] Comment: TESTS RESULT FLAG UNITS REF RANGE LAB DIAGNOSIS: 02 NEGATIVE FOR INTRAEPITHELIAL LESION OR MALIGNANCY. Specimen adequacy: 02 Satisfactory for evaluation. No endocervical component is identified. An endocervical component is not commonly seen in the patient. Performed by: Jason Morrison, Split Leather Mosser ([facility]) . 02 Note: Note 02 The Pap [...] <-Panic Low,>-Panic High,A-Abnormal,AA-Critical Abnormal Performed at: [address] [phone] Karlee Rolon MD, Performed at: =[address] [id number] It Service Manager: Karlee Rolon MD, Phone: [phone] Performed at: [address] [id number] It Service Manager: Karlee Rolon MD, Phone: [phone] 12/16/2024 8:38 AM EDT 12/16/2024 1:53 PM EDT Narrative CLINISYNC - 12/18/2024 2:10 PM EDT SPATULA-ALONE ENDOCERVIX Scar German DO LAB BLOOD ORDERABLES Final Resul t Performing Organization Address [facility]/ZIP Co de Phone Number CLINISYNC TB[facility] * Pap Smear (12/16/2024 12:00 AM EDT) Swab Cervical swab / Unknown SoFio DO LAB CYTOLOGY ORDERABLES Final Re sult EXTERNAL LAB * HBSAG SCREEN (11/01/2024 10:35 AM EDT) Pathologist [facility] HBSAG SCREEN Negative Negative [facility] Comment: Performed at: [address] [id number] It Service Manager: Morales Cameron PhD, Phone: [phone] 11/01/2024 10:3 5 AM EDT 11/01/2024 10:39 AM EDT Narrative CLINISYNC - 11/02/2024 1:07 PM EDT Scar German DO LAB BLOOD ORDERABLES Final Resul t Performing Organization Address [facility] Co de Phone Number [facility] * RAPID PLASMA REAGIN, QUANT (11/01/2024 10:35 AM EDT) RAPID PLASMA REAGIN, QUANT Non Reactive NonRea<1: 1 titer [facility] Comment: Please Note: This test does not meet current guidelines for screening and diagnosis of syphilis. This test is intended for following treatment response in patients being treated for syphilis infection. To screen for syphilis infection, a reflex cascade that includes both RPR and a treponema-specific assay should be utilized, such as Treponema pallidum (Syphilis) Screening [place] (206418) or Rapid Plasma Reagin (RPR) Test With Reflex to Quantitative RPR and Confirmatory Treponema pallidum Antibodies (400324). Performed at: [address] [id number] It Service Manager: Morales Cameron PhD, Phone: [phone] 11/01/2024 10:3 5 AM EDT 11/01/2024 10:39 AM EDT [facility] - 11/02/2024 1:07 PM EDT SoFio LAB BLOOD ORDERABLES Final Resul t Performing Organization Address [facility] Co de Phone Number [facility] * HIV AB/P24 AG WITH REFLEX (11/01/2024 10:35 AM EDT) Pathologist [facility] HIV AB/P24 AG SCREEN Non Reactive Non Reactive [facility] Comment: HIV-1/HIV-2 antibodies and HIV-1 p24 antigen were NOT detected. There is no laboratory evidence of HIV infection. HIV Negative Performed at: [facility] [employer] [id number] It Service Manager: Morales Cameron PhD, Phone: [phone] 11/01/2024 10:3 5 AM EDT 11/01/2024 10:39 AM EDT Narrative CLINISYNC - 11/02/2024 9:12 AM EDT us Scar German DO LAB BLOOD ORDERABLES Final Resul t Performing Organization Address [facility] Co de Phone Number [facility] * HCV ANTIBODY RFX TO QUANT PCR (11/01/2024 10:35 AM EDT) Pathologist [facility] HCV AB Non Reactive Non Reactive [facility] INTERPRETATION: Comment . [facility] Comment: Not infected with HCV unless early or acute infection is suspected (which may be delayed in an immunocompromised individual), or other evidence exists to indicate HCV infection. Performed at: - [facility] [id number] It Service Manager: Morales Cameron PhD, Phone: [phone] 11/01/2024 10:3 5 AM EDT 11/01/2024 10:39 AM EDT Narrative CLINISYNC - 11/02/2024 2:07 PM EDT Jemstepzio DO LAB BLOOD ORDERABLES Final Resul t Performing Organization Address [facility] Phone Number [facility] * MLR HEMOGLOBIN A1C (11/01/2024 10:35 AM EDT) Pathologist [facility] GLYCOHEMOGLOBIN A1C 5.5 4.5 - 6.2 % [facility] Comment: ADA RECOMMENDED LIMIT 4.0 - 6.0 ADA THERAPEUTIC TARGET < 7.0 ACTION SUGGESTED > 7.0 ESTIMATED AVERAGE GLUCOSE 111 mg/dL [facility] 11/01/2024 10:3 5 AM EDT 11/01/2024 10:39 AM EDT Narrative CLINISYNC - 11/01/2024 11:36 AM EDT us Scar German DO CLINISYNC Final Result Performing Organization Address [facility]/ZIP Co de Phone Number [facility] * ALL TYPE AND SCREEN (11/01/2024 10:35 AM EDT) BLOOD TYPE O Positive [facility] ANTIBODY SCREEN NEGATIVE [facility] 11/01/2024 10:3 5 AM EDT 11/01/2024 10:39 AM EDT Narrative CLINISYNC - 11/01/2024 12:08 PM EDT [facility] , us Scar German DO CLINISYNC Final Result Performing Organization Address [facility] Co de Phone Number [facility] * ALL RUBELLA IGG AB (11/01/2024 10:35 AM EDT) RUBELLA ANTIBODIES, IGG 10.90 Immune >0.99 index [facility]H Comment: Non-immune <0.90 Equivocal 0.90 - 0.99 Immune >0.99 Performed at: [facility] [id number] It Service Manager: Morales Cameron PhD, Phone: [phone] 11/01/2024 10:3 5 AM EDT 11/01/2024 10:39 AM EDT Narrative CLINISYNC - 11/02/2024 2:07 PM EDT us Scar German DO CLINISYNC Final Result Performing Organization Address [facility] Co de Phone Number [facility] * BOX TEST (11/01/2024 10:28 AM EDT) BOX TEST SENT OUT [facility]ITY TB BOX1 [facility] TB BOX2 11/01/24 TB 11/01/2024 10:2 8 AM EDT 11/01/2024 11:00 AM EDT Narrative CLINISYNC - 11/01/2024 11:57 AM EDT [place] us Scar German DO LAB BLOOD ORDERABLES Final Resul t Performing Organization Address City/[facility]/ZIP Co de Phone Number [facility] * TB DRUG SCREEN RAPID (URINE) (11/01/2024 10:25 AM EDT) Pathologist [facility] CANNABINOID SCREEN URINE NEGATIVE NEGATIVE TBH PHENCYCLIDINE [...] Narrative CLINISYNC - 11/01/2024 10:58 AM EDT Scar Fungo DO CLINISYNC Final Result [facility] from Last 3 Months Insurance [facility] Care Teams Math Tutor Relationship Specialty Start Date End Date Fer Boggs MD [address] [place] [address] PCP - General Family Medicine 10/09/24
--- OUTSIDE RECORDS SUMMARY | 2025-01-27 10:14 | XMS_ITS | Encounter Summary ---
Author Organization [facility] Address [address] [place] [address] Care Team Providers Care Quality Control Tester Name Role Phone Fer Boggs MD Primary Care Provider [phone] Encounter Details Date Type Department Care Team (Late st Contact Info) Description 12/30/2024 Orders Only [facility] OB [address] [place] [address] Tania Bertrand LPN [address] [place] [id number] Social History Tobacco Use Types Packs/Day Years [...] 02/10/2025 9:30 AM EDT Ancillary Procedure [facility] OB [address] [place] [address] 02/10/2025 10:10 AM EDT Routine [facility] OB [address] [place] [address] Scar Porter DO [address] [place], [place] [address] [place] [address] documented as of this encounter Procedures [...] on filedocumented in this encounter Care Teams Quality Control Tester Relationship Specialty [place] [address] [place], [place] [address] [address] PCP - General Family Medicine 10/09/24 documented as of this encounter
--- OUTSIDE RECORDS SUMMARY | 2025-01-27 10:14 | XMS_ITS | Encounter Summary ---
Author Organization [facility] Address [address] [place] [address] Care Team Providers Care Photographer Name Role Phone Fer Boggs MD Primary Care Provider [phone] Encounter Details Date Type Department Care Team (Late st Contact Info) Description 01/14/2025 Bamboo flowsheet [facility] OB [address] [place] [address] [place] [address] Anya Maldonado PA [address] [place] [address] Dr [place], [facility]11 Social History Tobacco Use Types Packs/Day Years [...] 02/10/2025 9:30 AM EDT Ancillary Procedure [facility] OB [address] [place], [place] [address] [address] 02/10/2025 10:10 AM EDT Routine [facility] OB [address] [place] [address] [place] [address] Scar Porter DO [facility] Irene [place], [facility]11 documented as of this encounter Visit Diagnoses Not on filedocumented in this encounter Care Teams Photographer Relationship Specialty Start Date End Date Fer Boggs MD [address] [address] PCP - General Family Medicine 10/09/24 documented as of this encounter
--- OUTSIDE RECORDS SUMMARY | 2025-01-27 10:14 | XMS_ITS | Encounter Summary ---
Author Organization [facility] Address [address] [place] [address] Care Team Providers Care Glove Parts Cutter Name Role Phone Fer Boggs MD Primary Care Provider [phone] Encounter Details Date Type Department Care Team (Late st Contact Info) Description 01/26/2025 Results Follow-Up [facility] OB [address] [facility] [place] [id number] Tania Bertrand LPN [address] [employer] [place], [place] [id number] Social History Tobacco Use Types Packs/Day Years [...] as of this encounter Miscellaneous Notes * Result Encounter Note - Tania Bertrand LPN - 01/26/2025 2:38 PM EDT Pt did not answer but detailed voicemail left. Orders sent to [facility] documented in this encounter Plan of Treatment Upcoming Encounters Date Type Department Care Team (Late st Contact Info) Description 02/10/2025 9:30 AM EDT Ancillary Procedure [facility] OB [address] [place] [address] 02/10/2025 10:10 AM EDT Routine [facility] OB [address] [facility] [place] [address] Scar Porter, DO [address] [facility] [address] [place], [place] [id number] documented as of this encounter Visit Diagnoses Not on filedocumented in this encounter Care Teams Glove Parts Cutter Relationship Specialty Start Date End Date Fer Boggs MD [address] [place] [address] PCP - General Family Medicine 10/09/24 documented as of this encounter
[2025-01-27 12:09] LABS: Glucose 1 Hour 169 mg/dL (<180)
[2025-01-27 12:58] LABS: Glucose 2 Hour 156 mg/dL (<155)
[2025-01-27 13:48] LABS: Glucose 3 Hour 127 mg/dL (<140)
== END 2025-01-27 10:12 | disposition home or self-care (01) ==
LOC: LAB 10:11
PROVIDERS: PCP Family Medicine; Visit Provider Obstetrics & Gynecology
DX: R73.09 Other abnormal glucose (principal); Z3A.24 24 weeks gestation of pregnancy
CPT/HCPCS: 36415; 82951; 82952

== ENCOUNTER 2025-04-06 16:51 | Observation (INO) | payer BC, SELFPAY ==
--- OUTSIDE RECORDS SUMMARY | 2025-03-24 08:50 | XMS_ITS | Encounter Summary ---
Author Organization [facility] Address [address] [place] [address] Care Team Providers Care Health Information Manager Name Role Phone Fer Boggs MD Primary Care Provider + [phone] Reason for Visit * Reason Comments Routine Visit Encounter Details Date Type Department Care Team (Late st Contact Info) Description 03/24/2025 8:50 AM EDT Office Visit DAYLIN Suacedo OBMARVA [address] [place] [phone] Anya Maldonado PA [address] [place] [address] 32 weeks gestation of ([facility]); Third trimester ([facility]) Social History Tobacco Use Types Packs/Day [...] Sign Reading Time Taken Comments Blood Pressure 130/86 03/24/2025 8:59 AM EDT Pulse - - Temperature - - Respiratory Rate - - Oxygen Saturation - - Inhaled Oxygen Concentration - - Weight 93.4 kg (206 lb) 03/24/2025 8:59 AM EDT Height - - Body Mass Index 34.28 12/16/2024 8:53 AM EDT documented in this encounter Progress Notes * MAGDA Staley - 03/24/2025 8:50 AM EDT Reason for Appointment: Patient ID: Diana Montenegro is a 29 y.o. female who presents for Routine Visit Patient presents today for Return OB appointment. MEDICATIONS Current Outpatient Medications Medication Instructions MV-Min-Fe Fum-FA-DHA ( 1 PO) Take by mouth ALLERGIES Allergies Allergen Reactions Keflex [Cephalexin] PROBLEMS Active Ambulatory Problems Diagnosis Date Noted No Active Ambulatory Problems Resolved Ambulatory Problems Diagnosis Date Noted No Resolved Ambulatory Problems No Additional Past Medical History HISTORY PAST MEDICAL HISTORY SOCIAL HISTORY History reviewed. No pertinent past medical history. Social History Tobacco Use Smoking status: Not on file Smokeless tobacco: Not on file Substance Use Topics Alcohol use: Not on file Drug use: Not on file FAMILY HISTORY No family history on file. SURGICAL HISTORY History reviewed. No pertinent surgical history. REVIEW OF SYSTEMS Review of Systems: Review [...] reviewed. Vitals: Estimated body mass index is 34.28 kg/m?? as calculated from the following: Height as of 12/16/24: 5' 5 . Weight as of this encounter: 206 lb. BP: 130/86 Patient's last menstrual period was 08/03/2024. ASSESSMENT & PLAN ICD-10-CM 1. 32 weeks gestation of ([facility]) Z3A.32 POCT urinalysis dipstick manually resulted 2. Third trimester ([facility]) Z34.93 POCT urinalysis dipstick manually resulted Return OB: Patient presents today for a routine obstetrics appointment. Patient is currently 32w4d . Patient states she is doing well but has complaints of being tired due to current . Patient has verbalizes frequent movement. labor precautions was discussed/given and patient was instructed to perform kick counts three times a day. Patient states she had an elevated bp reading earlier this weekend, denies any visual changes or Orders Placed This Encounter Procedures POCT urinalysis dipstick manually resulted Follow Up: Patient is to return to office in 2 week for routine OB appointment. Documented by MAGDA Staley on behalf of: MAGDA Staley documented in this encounter Plan of Treatment Upcoming Encounters Date Type Department Care Team (Late st Contact Info) Description 04/08/2025 10:50 AM EDT Routine [facility] [address] [place] [phone] Scar Porter DO [address] [place] [address] documented as of this encounter Procedures Procedure Name Priority Date/Time Associated Diagnosis Comments POCT URINALYSIS DIPSTICK Routine 03/24/2025 9:06 AM EDT 32 weeks gestation of ([facility]) Third trimester ([facility]) documented in this encounter Results * (ABNORMAL) POCT urinalysis dipstick manually resulted (03/24/2025 9:06 AM EDT) Color, UA Yellow Clarity, UA Clear Glucose, UA Negative Negative - 2000(110) ++++ mg/dL Bilirubin, UA Negative Negative - 4(70) +++ mg/dL Ketones, UA Negative Negative - 160(16) ++++ mg/dL Spec Grav, UA 1.020 1 - 1.03 Blood, UA Negative Negative - 50 Jaskaran/mcL pH, UA 6.0 5 - 9 Protein, UA Positive Negative - 2000(20) ++++ mg/dL Urobilinogen, UA 1.0 0.2 - 12 mg/dL Leukocytes, UA Positive Negative - 500+++ Ang/mcL Comment:2+ Nitrite, UA Negative Negative - Positive Urine 03/24/2025 9:06 AM EDT Anya MAN POINT OF CARE TEST ENTER/EDIT OR DERABLES Final Result documented in this encounter Visit Diagnoses Diagnosis 32 weeks gestation of ([facility]) Third trimester ([facility]) state, incidental documented in this encounter Care Teams Health Information Manager Relationship Specialty [place] [address] [place] [address] PCP - General Family Medicine 10/09/24 documented as of this encounter
--- OUTSIDE RECORDS SUMMARY | 2025-03-26 08:00 | XMS_ITS | Encounter Summary ---
Author Organization [facility] Address [address] [place] [address] Care Team Providers Care Director Of Group Sales Name Role Phone Fer Boggs MD Primary Care Provider [phone] Encounter Details Date Type Department Care Team (Latest Contact Info) Description 03/26/2025 8:00 AM EDT Ancillary Procedure [facility] [address] [place] [address] size inconsistent with dates ([facility]) Social History Tobacco Use Types Packs/Day [...] AM EDT Routine [facility] [address] [place] [address] Scar Porter DO [address] [place], [place] [phone] documented as of this encounter Procedures Procedure Name Priority Date/Time Associated Diagnosis Comments US OB FOLLOW UP TRANSABDOMINAL APPROACH Routine 03/26/2025 8:40 AM EDT size inconsistent with dates ([facility]) documented in this encounter Results * US OB follow up transabdominal approach (03/26/2025 8:40 AM EDT) Anatomical Region Laterality Modality Body Ultrasound 03/26/2025 2:13 PM EDT Impressions 03/26/2025 2:28 PM EDT 1. Single, live intrauterine , current sonographic age of 32 weeks and 5 days, with an estimated date of delivery of May 16, 2025. 2. Compared to the prior examination of January 06, 2025 date of delivery at that time was May 17, 2025 and weight by percentile was 32.9%. * Estimated Weight (g) by Percentile is based upon an accurate estimated age based on last menstrual period. TRANSCRIBED BY: ELECTRONICALLY SIGNED BY: Rob Aguillon MD Narrative 03/26/2025 2:28 PM EDT FINDINGS: A single, live intrauterine is present with normal cardiac rate of 138 beats per minute. Normal activity and amniotic fluid volume. Amniotic fluid index is 17.0 cm. The current sonographic age is 32 weeks and 5 days, based on the following measurements: BPD 8.1 cm (32 weeks, 3 days) Head Circumference 30.1 cm (33 weeks, 3 days) Abdominal Circumference 29.1cm (33 weeks, 1 days) Femur Length 6.1cm ( 31weeks, 4days) Presentation Cephalic Weight (g) by Percentile 33.0% * These measurements result in an estimated date of delivery of May 16, 2025. The current estimated weight is 2013 grams ( 4 pound, 7 ounces). Procedure Note Rob Aguillon MD - 03/26/2025 FINDINGS: A single, live intrauterine is present with normal cardiacrate of 138 beats per minute. Normal activity and amniotic fluidvolume. Amniotic fluid index is 17.0 cm. The current sonographic age is32 weeks and 5 days, based on the following measurements: BPD 8.1 cm (32 weeks, 3 days) Head Circumference 30.1 cm (33 weeks, 3 days) Abdominal Circumference 29.1cm (33 weeks, 1 days) Femur Length 6.1cm ( 31weeks, 4days) Presentation Cephalic Weight (g) by Percentile 33.0% * These measurements result in an estimated date of delivery of May. The current estimated weight is 2013 grams ( 4 pound, 7ounces). IMPRESSION: 1. Single, live intrauterine , current sonographic age of 32weeks and 5 days, with an estimated date of delivery of May. 2. Compared to the prior examination of January 06, 2025 date of delivery atthat time was May 17, 2025 and weight by percentile was 32.9%. * Estimated Weight (g) by Percentile is based upon an accurateestimated age based on last menstrual period. TRANSCRIBED BY: ELECTRONICALLY SIGNED BY: Rob Aguillon MD us Scar German DO IMG OB US PROCEDURES Final Resul t documented in this encounter Visit Diagnoses Diagnosis size inconsistent with dates ([facility]) documented in this encounter Care Teams Director Of Group Sales Relationship Specialty Start Date End Date Fer Boggs MD [address] [place] [address] PCP - General Family Medicine 10/09/24 documented as of this encounter
[2025-04-06] VITALS (17 sets, daily range): BP systolic 130–172; BP diastolic 91–113; PULSE 75–100
--- OUTSIDE RECORDS SUMMARY | 2025-04-06 17:01 | XMS_ITS | Encounter Summary ---
Author Organization [facility] Address [address] [place] [address] Care Team Providers Care Portfolio Manager Name Role Phone Fer Boggs MD Primary Care Provider [phone] Encounter Details Date Type Department Care Team (Late Contact Info) Description 12/30/2024 Orders Only [facility] [address] [place] [address] Tania Bertrand LPN [address] [place] [phone] Social History Tobacco Use Types Packs/Day Years [...] 04/08/2025 10:50 AM EDT Routine [facility] [address] [place] [address] Scar Porter DO [address] [place], [place] [phone] documented as of this encounter Procedures Procedure Name Priority Date/Time Associated Diagnosis Comments PAP SMEAR Routine 12/16/2024 12:00 AM EDT documented in this encounter Results * Pap Smear (12/16/2024 12:00 AM EDT) Swab Cervical swab / Unknown us Scar German DO LAB CYTOLOGY ORDERABLES Final Re sult EXTERNAL LAB documented in this encounter Visit Diagnoses Not on filedocumented in this encounter Care Teams Portfolio Manager Relationship Specialty Start Date End Date Fer Boggs MD [address] [facility] [place] [address] PCP - General Family Medicine 10/09/24 documented as of this encounter
--- OUTSIDE RECORDS SUMMARY | 2025-04-06 17:01 | XMS_ITS | Encounter Summary ---
Author Organization [facility] Address [address] [place] [address] Care Team Providers Care Telesales Manager Name Role Phone Fer Boggs MD Primary Care Provider [phone] Encounter Details Date Type Department Care Team (Late Contact Info) Description 03/24/2025 Bamboo flowsheet [facility] [address] [place] [address] Anya Maldonado PA [address] [place], [place] [address] Social History Tobacco Use Types Packs/Day Years [...] AM EDT Routine [facility] [address] [place] [address] Scar Porter DO [address] [facility] [place], [facility]11 documented as of this encounter Visit Diagnoses Not on filedocumented in this encounter Care Teams Telesales Manager Relationship Specialty Start Date End Date Fer Boggs MD [address] [place] [address] PCP - General Family Medicine 10/09/24 documented as of this encounter
--- OUTSIDE RECORDS SUMMARY | 2025-04-06 17:01 | XMS_ITS | Encounter Summary ---
Author Organization [facility] Address [address] [place] [place] [address] Care Team Providers Care Crusher Feeder Name Role Phone Fer Boggs MD Primary Care Provider + [phone] Encounter Details Date Type Department Care Team (Late st Contact Info) Description 03/23/2025 Telephone [facility] [address] [employer] [address] [place] [phone] Tania Bertrand LPN [address] [place] [phone] Social History Tobacco Use Types Packs/Day Years [...] Telephone Encounter - Tania Bertrand LPN - 04/03/2025 10:11 AM EDT Pt called stating that she had increased BP's and was not sure what to do. I told pt to come in andbe seen. PVU documented in this encounter Plan of Treatment Upcoming Encounters Date Type Department Care Team (Late st Contact Info) Description 04/08/2025 10:50 AM EDT Routine [facility] [address] [facility] [phone] Scar Porter DO [address] [place] [address] documented as of this encounter Visit Diagnoses Not on filedocumented in this encounter Care Teams Crusher Feeder Relationship Specialty Start Date End Date Fer Boggs MD [address] [place] [address] PCP - General Family Medicine 10/09/24 documented as of this encounter
--- OUTSIDE RECORDS SUMMARY | 2025-04-06 17:01 | XMS_ITS | Encounter Summary ---
Author Organization [facility] Address [address] [place] [address] Care Team Providers Care Electronic Intelligence Officer Name Role Phone Fer Boggs MD Primary Care Provider [phone] Encounter Details Date Type Department Care Team (Late Contact Info) Description 01/28/2025 Abstract [facility] [place] [address] Scar Porter DO [facility] [address] [place], [place] [address] Social History Tobacco Use Types Packs/Day Years [...] AM EDT Routine [facility] [address] [place] [address] Scar Porter DO [facility] [place], [place] [phone] documented as of this encounter Visit Diagnoses Not on filedocumented in this encounter Care Teams Electronic Intelligence Officer Relationship Specialty Start Date End Date Fer Boggs MD [address] [place] [address] PCP - General Family Medicine 10/09/24 documented as of this encounter
--- OUTSIDE RECORDS SUMMARY | 2025-04-06 17:01 | XMS_ITS | Clinical Summary ---
Author Organization [facility] Address [address] [place] [address] Care Team Providers Care Hearing Aid Dispenser Name Role Phone Fer Bogsg MD Primary Care Provider [phone] Allergies Active Allergy Reactions Criticality Noted Date Comments Cephalexin 10/09/2024 Medications MV-Min-Fe Fum-FA-DHA ( 1 PO) Take by mouth Active Encounters Date Type Department Care Team Description 04/06/2025 Telephone [facility] [address] [place], [place] [address] [address] Scar Porter DO 03/26/2025 8:00 AM EDT Ancillary Procedure [facility] [address] [place] [address] size inconsistent with dates ([facility]) 03/24/2025 8:50 AM EDT Office Visit [facility] [address] [place] [address] Anya Maldonado PA 32 weeks gestation of ([facility]); Third trimester ([facility]) 03/24/2025 Bamboo flowsheet [facility] [address] [place] [address] Anya Maldonado PA 03/23/2025 Telephone [facility] [address] [facility] [place] [address] Tania Bertrand LPN 03/10/2025 9:00 AM EDT Routine [facility] [address] [place] [address] Scar Porter DO 30 weeks gestation of ([facility]); size inconsistent with dates ([facility]) 03/10/2025 Bamboo flowsheet [facility] [address] [place] [address] Scar Porter, 02/25/2025 9:00 AM EDT Routine [facility] [address] [facility] [place] [place] [address] Mallory Louis NP Third trimester ([facility]); 28 weeks gestation of ([facility]) 02/25/2025 Bamboo flowsheet [facility] [address] [place] [address] Mallory Louis NP 02/10/2025 10:10 AM EDT Routine [facility] [address] [facility] [place] [address] Scar Porter, Second trimester ([facility]); 26 weeks gestation of ([facility]) 02/10/2025 9:30 AM EDT Ancillary Procedure [facility] [address] [place] [address] Encounter for follow-up ultrasound of anatomy ([facility]) 01/28/2025 Abstract [facility] [address] [place] [address] Scar Porter, 01/27/2025 Clinisync Result Encounter [facility] External Department Unsolicited Scar Porter DO 01/26/2025 Results Follow-Up [facility] [address] [place] [address] Tania Bertrand LPN GLUCOSE 1 HOUR, ALL CBC WITH AUTO DIFF 01/26/2025 [place] [address] SabasogTania LPN 01/24/2025 Clinisync Result Encounter [facility] External Department Unsolicited Anya Maldonado PA 01/14/2025 3:30 PM [place] [address] Anya Maldonado PA Second trimester ([facility]); 22 weeks gestation of ([facility]); Diabetes mellitus screening; Encounter for follow-up ultrasound of anatomy ([facility]) 01/14/2025 [place] [address] Anya Maldonado PA 01/06/2025 2:30 PM EDT [place] [address] Screening, , for anatomic survey ([facility]) from Last 3 Months Social History Tobacco [...] (206 lb) 03/24/2025 8:59 AM EDT Height 165.1 cm (5' 5 ) 12/16/2024 8:53 AM EDT Body Mass Index 34.28 12/16/2024 8:53 AM EDT Plan of Treatment Upcoming Encounters Date Type Department Care Team (Late st Contact Info) Description 04/08/2025 10:50 AM EDT Routine [facility] [address] [facility] [place] [address] Scar Porter, [address] [place] [address] Procedures Procedure Name Priority Date/Time Associated Diagnosis Comments US OB FOLLOW UP TRANSABDOMINAL APPROACH Routine 03/26/2025 8:40 AM EDT size inconsistent with dates ([facility]) POCT URINALYSIS DIPSTICK Routine 03/24/2025 9:06 AM EDT 32 weeks gestation of ([facility]) Third trimester ([facility]) POCT URINALYSIS DIPSTICK Routine 02/25/2025 10:21 AM EDT Third trimester ([facility]) POCT URINALYSIS DIPSTICK Routine 02/10/2025 10:47 AM EDT Second trimester ([facility]) US OB LIMITED 1+ FETUSES Routine 02/10/2025 9:52 AM EDT Encounter for follow-up ultrasound of anatomy ([facility]) GLUCOSE TOLERANCE 3 HOUR Routine 01/27/2025 10:32 AM EDT ALL CBC WITH AUTO DIFF Routine 10:52 AM EDT GLUCOSE 1 HOUR Routine 01/24/2025 10:52 AM EDT POCT URINALYSIS DIPSTICK Routine 01/14/2025 3:56 PM EDT Second trimester ([facility]) US OB 14+ WEEKS ANATOMY SCAN Routine 01/06/2025 3:39 PM EDT Screening, , for anatomic survey ([facility]) from Last 3 Months Results * US OB follow up transabdominal [...] SIGNED BY: Rob Aguillon MD us Scar Porter DO [facility] OB US PROCEDURES Final Resul t * (ABNORMAL) POCT urinalysis dipstick manually resulted (03/24/2025 9:06 AM EDT) Only the most recent of4 resultswithin the time period is included. Color, [...] - Positive Urine 03/24/2025 9:06 AM EDT us Anya MAN POINT OF CARE TEST ENTER/EDIT OR DERABLES Final Result * US OB limited 1+ fetuses (02/10/2025 9:52 AM EDT) Anatomical Region Laterality Modality Body Ultrasound 02/11/2025 7:36 AM EDT Narrative 02/11/2025 7:36 AM EDT EXAM: US OB LIMITED 1+ FETUSES HISTORY: Follow up anatomy. COMPARISON: Ob ultrasound 01/06/2025. TECHNIQUE: Two-dimensional transabdominal grayscale ultrasound imaging of the pelvis was performed. FINDINGS: Gestation: Single Presentation: Transverse Cardiac Activity: 150 beats per minute ANATOMY LVOT: Unremarkable RVOT: Unremarkable IMPRESSION: 1. Single, live intrauterine gestation 26 weeks, 4 days by LMP. IVET by LMP is 05/15/2025. 2. Unremarkable follow up ultrasound of the outflow tracts. Interpreted by: Electronically signed by SUMAN PATHAK II, MD, PHD at 11-Feb-2025 07:34:08 AM [facility] Procedure Note Suman Pathak MD - 02/11/2025 EXAM: US OB LIMITED 1+ FETUSES HISTORY: Follow up anatomy. COMPARISON: Ob ultrasound 01/06/2025. TECHNIQUE: Two-dimensional transabdominal grayscale ultrasound imaging ofthe pelvis was performed. FINDINGS: Gestation: Single Presentation: Transverse Cardiac Activity: 150 beats per minute ANATOMY LVOT: Unremarkable RVOT: Unremarkable IMPRESSION: 1. Single, live intrauterine gestation 26 weeks, 4 days by LMP. IVET byLMP is 05/15/2025. 2. Unremarkable follow up ultrasound of the outflow tracts. Interpreted by: Electronically signed by SUMAN PATHAK II, MD, PHD [id number] 07:34:08 AM [facility] us Anya MAN IMG OB US PROCEDURES Final Resul t * (ABNORMAL) GLUCOSE TOLERANCE 3 HOUR (01/27/2025 10:32 AM EDT) GLUCOSE TOLERANCE 3 HOUR (H) mg/dL [facility] Comment: GLU FAST 89 (<95) Col: 01/27/25 1032 GLU 1HR 169 (<180) Col: 01/27/25 1134 GLU 2HR 156H (<155) Col: 01/27/25 1233 GLU 3HR 127 (<140) Col: 01/27/25 1333 01/27/2025 10:3 2 AM EDT 01/27/2025 10:33 AM EDT Narrative [facility] - 01/27/2025 1:49 PM EDT us Scar Porter DO LAB BLOOD ORDERABLES Final Resul t [facility] * (ABNORMAL) GLUCOSE 1 HOUR (01/24/2025 10:52 AM EDT) GLUCOSE 1 HOUR 158(H) <130 mg/dL [facility] 01/24/2025 10:5 2 AM EDT 01/24/2025 10:52 AM EDT Narrative [facility] - 01/24/2025 11:20 AM EDT us Anya MAN LAB BLOOD ORDERABLES Final Resul t Performing Organization Address City/[facility]/ZIP Co de Phone Number [facility] * (ABNORMAL) ALL CBC WITH AUTO DIFF (01/24/2025 10:52 AM EDT) [facility] WBC 13.9(H) 4.0 - 11.0 10 3/uL [facility] RBC 3.81(L) 4.20 - 5.40 10 6/uL [facility] HGB 11.8(L) 12.0 - 16.0 g/dL [facility] TB HCT 33.9(L) 36.0 - 48.0 % [facility] [...] AM EDT 01/24/2025 10:52 AM EDT Narrative [facility] - 01/24/2025 11:24 AM EDT us Anya YANEZ Final Result [facility] * US OB 14+ weeks anatomy scan [...] II, MD, PHD at 08-Jan-2025 09:46:24 AM [facility] Procedure Note Suman Pathak MD - [...] signed by SUMAN PATHAK II, MD, PHD [id number] 09:46:24 AM [facility] us Scar German DO IMG OB US PROCEDURES Final Resul t from Last 3 Months Insurance BC Care Teams Hearing Aid Dispenser Relationship Specialty Start Date End Date Fer Boggs MD [address] [place] [address] PCP - General Family Medicine 10/09/24
--- OUTSIDE RECORDS SUMMARY | 2025-04-06 17:01 | XMS_ITS | Encounter Summary ---
Author Organization [facility] Address [address] [place] [address] Care Team Providers Care Tester Food Products Name Role Phone Fer Boggs MD Primary Care Provider + [phone] Encounter Details Date Type Department Care Team (Late st Contact Info) Description 04/06/2025 Telephone [facility] [address] [place] [phone] Scar Porter DO [address] [place], [facility]11 Social History Tobacco Use Types Packs/Day Years [...] encounter Miscellaneous Notes * Telephone Encounter - Janel Johnson LPN - 04/06/2025 3:56 PM EDT After speaking with provider we would recommend patient going to hospital to be checked out. Patient was advised to go to ER and they may advise her to go to [facility]. [facility]. Spoke with Ashlee and advised her of the pain location and gestation age. * Telephone Encounter - Janel Johnson LPN - 04/06/2025 3:35 PM EDT Patient called the office and she states that she is having some right side under shoulder pain andits a throbbing uncomfortable pain. Patient states was cleaning over the weekend not lifting anything. Patient states that the pain started last night and went away and is back again today and is rating this a 6/10. documented in this encounter Plan of Treatment Upcoming Encounters Date Type Department Care Team (Late st Contact Info) Description 04/08/2025 10:50 AM EDT Routine [facility] [address] [facility] [place] [phone] Scar Porter DO [address] [place] [address] documented as of this encounter Visit Diagnoses Not on filedocumented in this encounter Care Teams Tester Food Products Relationship Specialty Start Date End Date Fer Boggs MD [address] [place] [address] PCP - General Family Medicine 10/09/24 documented as of this encounter
[2025-04-06 17:53] LABS: Hematocrit 33.6 % (36.0-48.0); Hemoglobin 11.7 g/dL (12.0-16.0); Immature Granulocytes Abs Auto 0.06 10^3/uL (0.00-0.03); Immature Granulocytes Pct Auto 0.4 % (0.0-0.5); Lymphocytes Absolute Auto 1.8 10^3/uL (1.2-3.8); Mean Corpuscular HGB Conc 34.8 g/dL (29.9-35.2); Mean Corpuscular Hemoglobin 30.2 pg (26.7-34.0); Mean Corpuscular Volume 86.6 fL (81.0-99.0); Platelet Count 201 10^3/uL (150-450); Red Blood Count 3.88 10^6/uL (4.20-5.40); White Blood Count 13.6 10^3/uL (4.0-11.0)
[2025-04-06 18:01] LABS: Protein Creatinine Ratio Urine 0.53; Total Protein Urine Random 21.6 mg/dL (<=11.9)
[2025-04-06 18:05] LABS: Alanine Aminotransferase 67 U/L (14-59); Aspartate Amino Transferase 61 U/L (15-37); Blood Urea Nitrogen 9.0 mg/dL (7.0-18.0); Estimated GFR (African America >60 (>=60 mL/min/1.73m^2); Estimated GFR (Non-African Ame >60 (>=60 mL/min/1.73m^2); Uric Acid 2.9 mg/dL (2.6-6.0)
[2025-04-06 18:11] LABS: INR 0.94; Partial Thromboplastin Time 26.6 sec (22.3-36.2); Prothrombin Time 10.0 sec (9.0-11.6)
[2025-04-06 18:13] LABS: Fibrinogen 503 mg/dL (200-400)
[2025-04-06] MEDS: BETAMETHASONE ACE/BETAMETHASONE SOD PHOS 30 MG/5 ML 12 MG IM (18:15)
--- NOTE | 2025-04-06 18:31 | PM.OBHP ---
OB - H&P: HPI History of Present Illness Chief complaint: RT UPPER QUADRANT PAIN : 1 Para: 0 Gestational age based on last menstrual period: 34 3/7WKS Narrative: SEVERE PREECLAMPSIA History of Present Dating criteria: LMP confirmed by 1st trimester US care: good care Ultrasounds: normal 1st trimester US and normal mid trimester US complications: preeclampsia complications comment: SEVERE FEATURES Medical complications OB: none Labs Blood type: A (+) positive Rubella: immune RPR/VDLR: nonreactive GBS status: unknown HBsAG: negative Review of Systems ROS Status of ROS: 10 or more systems reviewed and unremarkable except as noted in history and below Meds Home Medications and Allergies Allergies Allergy/AdvReac Type Severity Reaction Status Date / Time cephalexin (From Keflex) Allergy Unknown Anaphylaxis Verified 04/06/25 17:30 Exam Constitutional Vital Signs, click to edit/add: Last Vital Signs Pulse 84 04/06/25 18:28 BP 152/106 H 04/06/25 18:28 Documenting provider has reviewed patient's vital signs: yes Common normals: no apparent distress Respiratory Common normals: normal respiratory effort and clear to auscultation bilaterally Cardio Common normals: regular rate and regular rhythm GI Common normals: Normal to inspection, nondistended, normoactive bowel sounds present Extremity Common normals: no clubbing, cyanosis or edema Results Labs Labs: Short CBC 04/06/25 Range/Units 17:43 WBC 13.6 H (4.0-11.0) 10^3/uL Hgb 11.7 L (12.0-16.0) g/dL Hct 33.6 L (36.0-48.0) % Plt Count 201 (150-450) 10^3/uL BMP 04/06/25 17:43 BUN 9.0 Creatinine 0.54 L Liver Function 04/06/25 Range/Units 17:43 AST 61 H (15-37) U/L ALT 67 H (14-59) U/L OB - A/P Assessment and Plan (1) Intrauterine : (2) Severe preeclampsia: Plan will transfer to [facility], [place] given, iv antihypertensive, pih panel, reactive nst, elevated liver enzymes
[2025-04-06] MEDS: LABETALOL HCL 20 MG/4 ML SYRINGE IVP (18:42)
[2025-04-06] MEDS: 0.9 % SODIUM CHLORIDE 1,000 ML 75 ML IV (18:52)
[2025-04-06] MEDS: MAGNESIUM-BOLUS FROM THE BAG- 40 GM/1,000 ML IV.SOLN IV (18:57)
[2025-04-06] MEDS: MAGNESIUM SULFATE IN WATER 40 GM/1,000 ML IV.SOLN IV (19:21)
== END 2025-04-06 22:39 | disposition short-term general hospital (02) ==
PROVIDERS: Admitting Provider Obstetrics & Gynecology; PCP Family Medicine; Visit Provider Obstetrics & Gynecology
DX: O14.13 Severe pre-eclampsia, third trimester (principal); Z3A.34 34 weeks gestation of pregnancy
CPT/HCPCS: 36415; 59025; 82565; 82570; 84156; 84450; 84460; 84520; 84550; 85025; 85384; 85610; 85730; 96365; 96366; 96372; 96375; 96376; G0378; G0379; J0702; J1920; J3475